=== PATIENT | male | born 1950 | race Caucasian/White ===

== ENCOUNTER → 2016-06-20 | Day surgery (SDC) | payer MEDICARE ==
[~2016-06-20] MED LIST: BUPIVACAINE 0.25%-EPINEPHRINE 1:200,000 30 ML INF ONE; DEXAMETHASONE 4 MG/ML VIAL IV PRN; DEXAMETHASONE 4 MG/ML VIAL ONE; DIAZEPAM 5 MG TAB PO PRN; FENTANYL 100 MCG/2 ML VIAL IV PRN; FENTANYL 100 MCG/2 ML VIAL ONE; HYDROCODONE 5 MG/ACETAMIN 325 MG TAB PO PRN; KETOROLAC TROMETH 30 MG/ML VIAL IV PRN; KETOROLAC TROMETH 30 MG/ML VIAL ONE; LABETALOL 20 MG/4 ML SYRINGE IV PRN; LR 1,000 ML IV ONE; LR 1,000 ML IV SCH; MIDAZOLAM 2 MG/2 ML VIAL ONE; NS 1,000 ML IV SCH; NS 250 ML IV SCH; ONDANSETRON HCL 4 MG/2 ML VIAL IV PRN; ONDANSETRON HCL 4 MG/2 ML VIAL ONE; PROPOFOL 200 MG/20 ML VIAL IV ONE; SCOPOLAMINE TRANSDERMAL PATCH TOP PRN; hydrALAZINE 20 MG/ML VIAL IV PRN
--- NOTE | 2016-06-20 07:01 | SC.ANESEVA ---
Anesthesia Eval & Plan ([facility]) - Providers Stated Procedure: right side hernia Surgeon:: Van Burns - Medications/Allergies Allergies: Allergies No Known Allergies Allergy (Verified 06/19/16 08:24) Current Medication List: Reviewed - Focused Physical Exam NPO since: Since after Midnight Mallampati: Class II Thyromental Distance: Greater than 3 Neck: Full Range of Motion Dental: Normal - no significant findings Cardiovascular/Chest: Normal (RRR no mumurs or rubs.) Respiratory: Lungs clear. negative: Wheezing Any problems with anesthesia, including nausea and vomiting?: No Any relatives with a history of Malignant Hyperthermia?: No Prone to Motion Sickness: No Other: Diagnoses UNIL INGUINAL HERNIA, W/O OBST OR GANGR, NOT SPCF RECUR (06/20/16) Allergies Allergy/AdvReac Type Severity Reaction Status Date / Time No Known Allergies Allergy Verified 06/19/16 08:24 Home Medications Medication Instructions Recorded Last Taken Type Atorvastatin Calcium [Lipitor] 20 mg PO DAILY 05/20/13 05/18/13 History Height and Weight Patient's height 5 ft 11 in Patient's weight 79.832 kg Weight (Calculated Kilograms) 79.832 BMI 24.5 - Anesthetic Plan Anesthesia Type: General ASA Class: 2 - Focused Review of Systems Cardiac History: Yes: Hx Cardiac Disorders, Hx Abnormal Cholesterol/ Hyperlipidemia HEENT: No: Other HEENT Problems Gastrointestinal: Yes: Hx Gastroesophageal Reflux Disease, Hx Gastrointestinal Disorders, Hx Colonoscopy Neurological/Musculoskeletal: No: Hx Neurological Disorders Blood/Autoimmune: Yes: Hx Blood Transfusions Smoking Status: Former smoker Surgical History: Yes: T&A, Knee Other Surgical History: SPLEENECTOMY
[2016-06-20 10:49] VITALS: TEMP 97.1; BMI 24.8
--- NOTE | 2016-06-20 12:44 | HIMOPRPT ---
DATE OF PROCEDURE: 06/20/16 PREOPERATIVE DIAGNOSIS: Symptomatic incarcerated right inguinal hernia. POSTOPERATIVE DIAGNOSIS: Symptomatic incarcerated right inguinal hernia. PROCEDURE: Inguinal hernia repair with mesh prosthesis SURGEON: Van Burns MD CASTING INSPECTOR: none. ANESTHESIA: General Anesthesia ESTIMATED BLOOD LOSS: Minimal COMPLICATIONS: None noted. ANTIBIOTICS: Preoperative antibiotics were given. INDICATIONS: JESSICA FINN is a 66 year-old M patient, who had been found to have symptomatic incarcerated right inguinal hernia. We had evaluated and felt JESSICA would benefit from inguinal hernia repair. Explained the risks and benefits of this to him including the risk of infection, bleeding, anesthesia, as well as the unforeseen complications and the risk of recurrence testicular disease, devascularization, and nerve entrapment. JESSICA had understood and agreed and was brought for the above mentioned procedure. PROCEDURE IN DETAIL: The patient was brought to the operating room and placed on the operating room table in supine position. After identification of the patient's site, was given adequate amount of general anesthesia, then prepped and draped in sterile manner. When given okay by Anesthesia, after appropriate time-out, right groin was anesthetized with local anesthesia. An inguinal incision made through the skin and subcutaneous tissues with scalpel dissection. Bleeding was controlled with cautery. Dissection was carried down through subcutaneous tissues. Bridging veins were ligated and divided, and the external oblique was infiltrated with local anesthesia. We incised along the lines of fibers of through the external ring, and then dissected the inguinal floor without any problems. There was noted to be a indirect inguinal hernia. We dissected the sac out and twisted it on itself then suture ligated it with silk suture and amputated the sac. At that point, we assured hemostasis, cut a piece of Ultrapro mesh to size and sutured in position using 0-Prolene suture, going along shelving edge of Poupart's ligament and along the conjoined tendon as well. The keyhole defect was closed with 3 interrupted 0-Prolene sutures. So that the cord structures were neither too tight nor too loose and the tip of the finger to go alongside the cord structures. Wound was irrigated. Hemostasis was assured. The external oblique was then closed with 3-0 Vicryl suture and then 2 layers of 3-0 Vicryl suture placed in subcutaneous tissues and 4-0 Monocryl was used to bring the skin incisions together. Dermabond tissue adhesive was applied and allowed to dry. The patient was awoken and taken to recovery room in excellent condition with correct sponge counts and needle counts.
--- NOTE | 2016-06-20 13:10 | SC.ANESPOS ---
Post-Anesthesia Note LOC: Fully Awake Post-Anesthesia Assessment: Awake, Returned to Baseline, Hemodynamically Stable , Pain Control Adequate Phase I & II Recovery Complete: Yes Apparent Anesthesia Complication: No : N - Vital Signs Blood Pressure: 135/72 Pulse: 71 Resp Rate: 17 O2 Sat: 98 Temp: 97.1 F
[2016-06-20 13:24] VITALS: BP 100/65; PULSE 64
== END ==
LOC: CPSC 10:01
PROVIDERS: ATTEND Surgery
PROC: 0YU50JZ Supplement Right Inguinal Region with Synthetic Substitute, Open Approach (ICD-10-PCS; principal; 2016-06-20 11:00)
DX: K40.90 Unilateral inguinal hernia, without obstruction or gangrene, not specified as recurrent (principal); E78.5 Hyperlipidemia, unspecified; K21.9 Gastro-esophageal reflux disease without esophagitis; M19.90 Unspecified osteoarthritis, unspecified site; Z87.891 Personal history of nicotine dependence; Z79.899 Other long term (current) drug therapy
CPT/HCPCS: 49505; C1781; J1100; J1885; J2250; J2405; J2704; J3010; J3490